=== PATIENT | female | born 1980 | race Caucasian/White ===

== ENCOUNTER 2021-10-04 15:39 | Emergency (ER) | payer OTHER ==
[~2021-10-04] VITALS: Ht 175.3 cm; Wt 113.4 kg
[2021-10-04 16:22] VITALS: BP 106/67
[2021-10-04] MEDS ORDERED: ACETAMINOPHEN EXTRA STRENGTH 500 MG TAB PO ONE (17:40)
[2021-10-04] MEDS ORDERED: KETOROLAC 30 MG/ML VIAL IM ONE (17:40)
[2021-10-04] MEDS ORDERED: ONDANSETRON 4 MG ODT PO ONE (17:40)
--- NOTE | 2021-10-04 18:35 | NUR ---
JOSLYN AND FLU SWABS COLLECTED AND WALKED TO LAB
[2021-10-04 19:53] LABS: BASOPHILS # (AUTO) 0.1 K/uL (0.00-0.22); BASOPHILS % (AUTO) 0.7 % (0.0-2.0); EOSINOPHILS # (AUTO) 0.1 K/uL (0-0.4); EOSINOPHILS % (AUTO) 0.8 % (0.0-4.0); HEMATOCRIT 40.3 % (36-48); HEMOGLOBIN 13.2 g/dL (12.0-16.0); LYMPHOCYTES # (AUTO) 1.3 K/uL (2.5-16.5); LYMPHOCYTES % (AUTO) 12.5 % (20.5-51.1); MEAN CORPUSCULAR HEMOGLOBIN 28 pg (27-31); MEAN CORPUSCULAR HGB CONC 33 g/dL (33-37); MEAN CORPUSCULAR VOLUME 84.8 fL (80-94); MONOCYTES # (AUTO) 0.7 K/uL (0.8-1.0); MONOCYTES % (AUTO) 6.6 % (1.7-9.3); NEUTROPHILS # (AUTO) 8.4 K/uL (1.8-7.7); NEUTROPHILS % (AUTO) 79.4 % (42.2-75.2); PLATELET COUNT (AUTO) 319 K/uL (140-450); RED BLOOD CELL COUNT(AUTO) 4.75 MIL/uL (4.20-5.40); RED CELL DISTRIBUTION WIDTH 13.9 % (11.6-13.7); WHITE BLOOD COUNT (AUTO) 10.6 K/uL (4.8-10.8)
[2021-10-04 20:23] LABS: ANION GAP 11.6 (8-16); CARBON DIOXIDE 28.5 mmol/L (21-32); CREATININE 0.9 mg/dL (0.6-1.3); POTASSIUM 4.1 mmol/L (3.5-5.1)
[2021-10-04] MEDS ORDERED: ONDA-188 PO (21:03)
[2021-10-04] MEDS ORDERED: PRED20TA5 PO (21:03)
[2021-10-04] MEDS ORDERED: PROM118S5 PO (21:03)
[2021-10-04] MEDS ORDERED: ACET-10509 PO (21:03)
[2021-10-04] MEDS ORDERED: AZIT250T4 PO (21:03)
[2021-10-04 21:05] VITALS: BP 119/76
--- NOTE | 2021-10-04 21:05 | NUR ---
Patient discharged with v/s stable. Written and verbal after care instructions given and explained. Patient alert, oriented and verbalized understanding of instructions. Ambulatory with steady gait. All questions addressed prior to discharge. ID band removed. Patient advised to follow up with PMD. Rx of TYLENOL,ZITHROMAX,ZOFRAN,DELTASONE, PROMETHAZINE given. Patient educated on indication of medication including possible reaction and side effects. Opportunity to ask questions provided and answered.
== END 2021-10-04 21:05 | disposition home or self-care (01) ==
LOC: MED 15:39
DX: J06.9 Acute upper respiratory infection, unspecified (principal); J40 Bronchitis, not specified as acute or chronic; Z20.822 Contact with and (suspected) exposure to COVID-19; Z79.899 Other long term (current) drug therapy; Z79.2 Long term (current) use of antibiotics; Z88.0 Allergy status to penicillin; Z88.1 Allergy status to other antibiotic agents
CPT/HCPCS: 36415; 71045; 80048; 85025; 87426; 87804; 96372; 99284; J1885; Q0162

== ENCOUNTER 2022-04-14 08:29 | Emergency (ER) | payer OTHER ==
[~2022-04-14] VITALS: Ht 175.3 cm; Wt 117.0 kg
[~2022-04-14 08:29] MED LIST: ACET-10509 PO; AZIT250T4 PO; ONDA-188 PO; PRED20TA5 PO; PROM118S5 PO
[2022-04-14 08:39] VITALS: BP 123/96
[2022-04-14] MEDS ORDERED: ONDANSETRON 4 MG/2 ML VIAL IVP ONE (09:15)
[2022-04-14] MEDS ORDERED: NACL 0.9% 1,000 ML IV ONE (09:15)
[2022-04-14] MEDS ORDERED: MORPHINE SULFATE 4 MG/ML SYR IVP ONE (09:15)
[2022-04-14 10:11] LABS: BASOPHILS % (AUTO) 0.3 % (0.0-2.0); EOSINOPHILS # (AUTO) 0.1 K/uL (0-0.4); EOSINOPHILS % (AUTO) 1.6 % (0.0-4.0); HEMATOCRIT 38.3 % (36-48); HEMOGLOBIN 12.5 g/dL (12.0-16.0); LYMPHOCYTES # (AUTO) 1.7 K/uL (2.5-16.5); LYMPHOCYTES % (AUTO) 22.5 % (20.5-51.1); MEAN CORPUSCULAR HEMOGLOBIN 28 pg (27-31); MEAN CORPUSCULAR HGB CONC 33 g/dL (33-37); MEAN CORPUSCULAR VOLUME 84.7 fL (80-94); MONOCYTES # (AUTO) 0.5 K/uL (0.8-1.0); MONOCYTES % (AUTO) 7.2 % (1.7-9.3); NEUTROPHILS # (AUTO) 5.2 K/uL (1.8-7.7); NEUTROPHILS % (AUTO) 68.4 % (42.2-75.2); PLATELET COUNT (AUTO) 291 K/uL (140-450); RED BLOOD CELL COUNT(AUTO) 4.52 MIL/uL (4.20-5.40); RED CELL DISTRIBUTION WIDTH 13.9 % (11.6-13.7); WHITE BLOOD COUNT (AUTO) 7.6 K/uL (4.8-10.8)
[2022-04-14 10:40] LABS: ALBUMIN 3.4 g/dL (3.4-5.0); ANION GAP 11.9 (8-16); CARBON DIOXIDE 28.8 mmol/L (21-32); CREATININE 0.7 mg/dL (0.6-1.3); POTASSIUM 3.7 mmol/L (3.5-5.1); TOTAL BILIRUBIN 0.3 mg/dL (0.0-1.0)
--- NOTE | 2022-04-14 11:00 | NUR ---
AMBULATED TO ER BED 2
--- NOTE | 2022-04-14 11:40 | NUR ---
42YO FEMALE PT C/O FEVER , THROAT AND ABDOMINAL PAIN X3 DAYS. PT REPORTS FEVER OF 102 AT HOME VIA TYMPANIC AND N/V/D X3 DAYS. PT DENIES BLOOD IN V/D AND HAS MILD NAUSEA AT THIS TIME. UNABLE TO KEEP FOOD DOWN . PT STATES 10/10 THROAT PAIN AND HAS TROUBLE SWALLOWING DUE TO "STUCK" FEELING IN THROAT. THROAT PRESENTS WITH MILD SWELLING ON R SIDE AND TENDER TO TOUCH . PT DENIES SOB OR CHEST PAIN. PT STATES CRAMPING 7/10 LOWER ABDOMINAL PAIN AND IS TENDER TO TOUCH, NON DISTENDED , ACTIVE X4. LMP 6 WEEKS AGO. PT TAKES IBUPROFEN AT HOME W/ MILD RELIEF. PT AAOX4, IN VISIBLE DISTRESS AND GUARDING ABDOMEN. RESPIRATIONS EVEN AND UNLABORED. PT HAS HX OF HYPOTHYROIDISM AND HAS PENDING FOLLOW UP IN JULY. HX: HYPOTHYROIDISM ALLERGIES: PENICILLIN, METRONIDAZOLE
[2022-04-14] MEDS ORDERED: MORPHINE SULFATE 4 MG/ML SYR ONE (11:54)
[2022-04-14] MEDS ORDERED: ONDANSETRON 4 MG/2 ML VIAL ONE (11:54)
[2022-04-14] MEDS ORDERED: PIPERACILLIN/TAZOBACTAM 3.375 GM VIAL IV ONE (11:55)
[2022-04-14] MEDS ORDERED: cefTRIAXone 1,000 MG VIAL ONE (11:56)
--- NOTE | 2022-04-14 12:22 | NUR ---
PT TAKEN TO CT VIA JAIME
--- NOTE | 2022-04-14 12:34 | NUR ---
PT BROUGHT BACK FROM CT VIA JA[facility]
--- NOTE | 2022-04-14 12:36 | NUR ---
PT AMBULATED TO RESTROOM
[2022-04-14] MEDS ORDERED: AZIT250T4 PO (13:19)
[2022-04-14] MEDS ORDERED: IBUP-2213 PO (13:20)
--- NOTE | 2022-04-14 13:50 | NUR ---
IV removed, catheter intact and site benign. Applied folded 4x4 gauze and tape to stop bleeding.
--- NOTE | 2022-04-14 13:53 | NUR ---
Patient discharged with v/s stable. Written and verbal after care instructions FOR TONSILLITIS given and explained. Patient alert, oriented and verbalized understanding of instructions. Ambulatory with steady gait. All questions addressed prior to discharge. ID band removed. Patient advised to follow up with PMD. Rx of ZITHROMAX ZPACK AND IBUPROFEN given. Opportunity to ask questions provided and answered.
[2022-04-14 13:54] VITALS: BP 128/82
== END 2022-04-14 13:53 | disposition home or self-care (01) ==
LOC: MED 08:29
DX: J03.90 Acute tonsillitis, unspecified (principal); R50.9 Fever, unspecified; Z88.0 Allergy status to penicillin; Z88.1 Allergy status to other antibiotic agents
CPT/HCPCS: 36415; 70491; 80053; 84702; 85025; 85651; 86140; 87040; 96361; 96365; 96375; 99285; J0696; J2270; J2405; Q9967; J2543

== ENCOUNTER 2024-01-22 16:08 | Emergency (ER) | payer SELFPAY ==
[~2024-01-22] VITALS: Ht 175.3 cm; Wt 122.5 kg
[~2024-01-22 16:08] MED LIST changes: +BROM118S70 PO; +IBUP-2213 PO
[2024-01-22 16:13] VITALS: BP 119/72; PULSE 81; RESP 18; TEMP 97.2; O2SAT 100
[2024-01-22 17:20] LABS: BASOPHILS % (AUTO) 0.3 % (0.0-2.0); EOSINOPHILS # (AUTO) 0.4 K/uL (0-0.4); EOSINOPHILS % (AUTO) 3.8 % (0.0-4.0); HEMATOCRIT 40.8 % (36-48); HEMOGLOBIN 13.7 g/dL (12.0-16.0); LYMPHOCYTES # (AUTO) 3.6 K/uL (2.5-16.5); LYMPHOCYTES % (AUTO) 39.4 % (20.5-51.1); MEAN CORPUSCULAR HEMOGLOBIN 29 pg (27-31); MEAN CORPUSCULAR HGB CONC 34 g/dL (33-37); MEAN CORPUSCULAR VOLUME 86.6 fL (80-94); MONOCYTES # (AUTO) 0.6 K/uL (0.8-1.0); MONOCYTES % (AUTO) 6.9 % (1.7-9.3); NEUTROPHILS # (AUTO) 4.6 K/uL (1.8-7.7); NEUTROPHILS % (AUTO) 49.6 % (42.2-75.2); PLATELET COUNT (AUTO) 371 K/uL (140-450); RED BLOOD CELL COUNT(AUTO) 4.71 MIL/uL (4.20-5.40); RED CELL DISTRIBUTION WIDTH 13.5 % (11.6-13.7); WHITE BLOOD COUNT (AUTO) 9.2 K/uL (4.8-10.8)
[2024-01-22 17:41] LABS: ANION GAP 9.9 (8-16); CALCIUM 9.2 mg/dL (8.5-10.1); CREATININE 0.8 mg/dL (0.6-1.3); POTASSIUM 3.9 mmol/L (3.5-5.1)
[2024-01-22] MEDS: ONDANSETRON 4 MG/2 ML VIAL IVP ONE (17:41)
[2024-01-22] MEDS: NACL 0.9% 2,000 ML IV ONE (17:42)
[2024-01-22 17:47] LABS: ALBUMIN 3.6 g/dL (3.4-5.0); BILIRUBIN,DIRECT 0.1 mg/dL (0.0-0.3); TOTAL BILIRUBIN 0.2 mg/dL (0.0-1.0); TOTAL PROTEIN, SERUM 7.3 g/dL (6.4-8.2)
[2024-01-22 17:50] LABS: APPEARANCE,URINE CLEAR (CLEAR); BILIRUBIN,URINE NEGATIVE (NEGATIVE); BLOOD, URINE NEGATIVE (NEGATIVE); COLOR,URINE YELLOW (YELLOW); LEUKOCYTE ESTERASE ,URINE NEGATIVE (NEGATIVE); NITRITE, URINE NEGATIVE (NEGATIVE); PROTEIN,URINE NEGATIVE (NEGATIVE); UGLUCOSE NEGATIVE (NEGATIVE); UROBILINOGEN,URINE 0.2 EU/dL (0.2 - 1)
[2024-01-22] MEDS: KETOROLAC 30 MG/ML VIAL IVP ONE (18:22)
[2024-01-22] MEDS ORDERED: BEN10 PO (18:54)
[2024-01-22 19:00] VITALS: O2SAT 100
[2024-01-22] MEDS: diazePAM 5 MG TAB PO ONE (19:00)
== END 2024-01-22 20:03 | disposition home or self-care (01) ==
LOC: MED 16:08
DX: R10.84 Generalized abdominal pain (principal); R19.7 Diarrhea, unspecified; R11.2 Nausea with vomiting, unspecified; Z90.49 Acquired absence of other specified parts of digestive tract; Z98.51 Tubal ligation status; Z79.899 Other long term (current) drug therapy; Z88.0 Allergy status to penicillin; Z88.1 Allergy status to other antibiotic agents
CPT/HCPCS: 36415; 74176; 80048; 80076; 81003; 81025; 83690; 85025; 96361; 96374; 96375; 99285; J1885; J2405; J7030